=== PATIENT | male | born 1990 | race Caucasian/White ===

== ENCOUNTER 2020-02-25 05:25 | Emergency (ER) | payer SELFPAY ==
[~2020-02-25] VITALS: Ht 190.5 cm; Wt 108.9 kg
[2020-02-25] MEDS ORDERED: LIDOCAINE-MPF 1%, 2ML ONE (05:41)
[2020-02-25] MEDS ORDERED: DIPH,PERTUSS(ACELL),TET VAC/PF 0.5 ML IM-VACC ONE ×2 (05:42→06:00)
--- NOTE | 2020-02-25 05:56 | NUR ---
PT CELEBRATING BIRTHDAY, HAD A COUPLE ALCOHOLIC DRINKS AND FELL WHEN GETTING OUT OF SHOWER AND HIT HEAD. DENIES LOC, STATES MINIMAL PAIN. NO DRIFT, STEADY AMBULATING, FACE IS SYMETRICAL. PATIENT PLACED ON MONITORS, GIVEN TDAP VACCINE, AND ROOM IS BEING SET UP FOR SUTURING WOUND.
[2020-02-25] MEDS ORDERED: LIDOCAINE-MPF 1%, 5ML INFIL ONE (06:00)
[2020-02-25 06:22] VITALS: BP 137/79
--- NOTE | 2020-02-25 06:23 | NUR ---
PROVIDER AT BEDSIDE FOR SUTURES
== END 2020-02-25 06:45 | disposition home or self-care (01) ==
LOC: ED 06:06
DX: S01.01XA Laceration without foreign body of scalp, initial encounter (principal); S01.81XA Laceration without foreign body of other part of head, initial encounter; W18.30XA Fall on same level, unspecified, initial encounter; Y93.89 Activity, other specified; Y92.009 Unspecified place in unspecified non-institutional (private) residence as the place of occurrence of the external cause; Y99.8 Other external cause status
CPT/HCPCS: 12032; 90471; 90715; 99284